=== PATIENT | male | born 1960 | race Caucasian/White ===

== ENCOUNTER 2021-03-10 16:00 | Inpatient (IN) ==
[2021-03-10] MEDS ORDERED: Morphine Sulfate 2 MG/ML SYRINGE IVP ONE (16:20)
[2021-03-10 16:38] LABS: Basophils # 0.1 K/mcL (0.0-0.2); Basophils % 0.6 %; Eosinophils # 0.3 K/mcL (0.0-0.6); Eosinophils % 3.6 %; Hematocrit 45.6 % (37.5-50.1); Hemoglobin 15.7 g/dL (12.9-16.9); Immature Granulocytes % 0.5 % (0-4); Lymphocytes # 3.1 K/mcL (0.6-4.6); Lymphocytes % 33.3 %; Mean Corpuscular HGB Conc 34.4 g/dL (31.6-35.5); Mean Corpuscular Hemoglobin 30.8 pg (28.0-33.3); Mean Corpuscular Volume 89.4 fL (83.0-100.0); Mean Platelet Volume 11.3 fL (9.4-12.4); Monocytes # 0.6 K/mcL (0.0-1.3); Monocytes % 6.1 %; Neutrophils # 5.2 K/mcL (1.6-8.9); Platelet Count 218 K/mcL (140-400); Red Cell Distribution Width 12.9 % (11.5-14.5); Segmented Neutrophils % 55.9 %; White Blood Count 9.3 K/mcL (4.3-11.1)
[2021-03-10 16:46] LABS: INR 1.2
[2021-03-10 16:49] LABS: Activated Partial Thrombo Time 31.6 Seconds (26.0-36.0)
[2021-03-10] MEDS ORDERED: Pantoprazole 40 MG VIAL IVP ONE (16:57)
[2021-03-10] MEDS ORDERED: Ondansetron 4 MG/2 ML VIAL IVP ONE (16:57)
[2021-03-10] MEDS ORDERED: GI Cocktail 40 ML EACH PO ONE (16:57)
[2021-03-10 17:08] LABS: BUN/Creatinine Ratio 13 (6-26); Blood Urea Nitrogen 14 mg/dL (8-23); Calcium 9.5 mg/dL (8.6-10.3); Carbon Dioxide 26 mEq/L (23-29); Chloride 104 mEq/L (98-107); Glucose 123 mg/dL (70-105); Lipase 23 Units/L (11-82); Osmolality,Calculated 294 (280-300); Potassium 3.7 mEq/L (3.5-5.1); Sodium 141 mEq/L (136-145); Troponin I 0.52 ng/mL (< 0.04); eGFR For African Americans > 60 (> 60); eGFR For Non-African Americans > 60 (> 60)
[2021-03-10] MEDS ORDERED: *HR* Heparin 5,000 UNIT/ML VIAL IVP PRN ×2 (17:08)
[2021-03-10] MEDS ORDERED: Aspirin 81 MG TAB.CHEW PO ONE (17:08)
[2021-03-10] MEDS ORDERED: Heparin 25,000UNIT/250ML 1/2NS 25,000 UNIT/250 ML IV.SOLN IVC SCH (17:15)
[2021-03-10 17:32] LABS: Heparin anti-factor XA UFH < 0.04 IU/mL (0.30-0.70)
[2021-03-10] MEDS: *HR* Heparin 5,000 UNIT/ML VIAL IVP ONE ×2 (17:36→18:11)
[2021-03-10] MEDS ORDERED: Ondansetron 4 MG/2 ML VIAL IVP PRN (18:21)
[2021-03-10] MEDS ORDERED: Naloxone 0.4 MG/ML INJ IVP PRN (18:21)
[2021-03-10] MEDS ORDERED: Perflutren Lipid Microsphere 1.3 ML in 0.9 % Sodium Chloride 8.7 ML IVP PRN (18:33)
[2021-03-10] MEDS ORDERED: Nitroglycerin 0.4 MG TAB.SUBL SL ONE (19:05)
[2021-03-10] MEDS: Nitroglycerin 0.4 MG TAB.SUBL SL PRN ×3 (19:08→21:23)
[2021-03-10] MEDS ORDERED: Nitroglycerin 1 INCH/GM PACKET TP ONE (21:26)
[2021-03-10] MEDS ORDERED: Morphine Sulfate 2 MG/ML SYRINGE IVP PRN (22:27)
[2021-03-11 03:39] LABS: Basophils % 0.3 %; Eosinophils % 0.3 %; Hematocrit 43.7 % (37.5-50.1); Hemoglobin 15.2 g/dL (12.9-16.9); Immature Granulocytes % 0.4 % (0-4); Lymphocytes # 1.8 K/mcL (0.6-4.6); Mean Corpuscular HGB Conc 34.8 g/dL (31.6-35.5); Mean Corpuscular Volume 89.2 fL (83.0-100.0); Mean Platelet Volume 12.1 fL (9.4-12.4); Monocytes # 0.6 K/mcL (0.0-1.3); Monocytes % 4.5 %; Neutrophils # 10.5 K/mcL (1.6-8.9); Platelet Count 207 K/mcL (140-400); Red Cell Distribution Width 12.8 % (11.5-14.5); Segmented Neutrophils % 80.5 %
[2021-03-11 04:01] LABS: BUN/Creatinine Ratio 18 (6-26); Blood Urea Nitrogen 16 mg/dL (8-23); Carbon Dioxide 21 mEq/L (23-29); Chloride 103 mEq/L (98-107); Glucose 135 mg/dL (70-105); Osmolality,Calculated 283 (280-300); Potassium 4.5 mEq/L (3.5-5.1); Sodium 135 mEq/L (136-145); eGFR For African Americans > 60 (> 60); eGFR For Non-African Americans > 60 (> 60)
[2021-03-11 04:34] LABS: Cholesterol 189 mg/dL (< 200); HDL Cholesterol 38 mg/dL (40-59); LDL Cholesterol,Calculated 122 mg/dL (< 100); Magnesium 1.9 mg/dL (1.6-2.6); Triglycerides 147 mg/dL (< 150)
[2021-03-11] MEDS: Aspirin 81 MG TAB.CHEW PO SCH ×2 (07:51→09:21)
[2021-03-11] MEDS ORDERED: 0.9 % Sodium Chloride 1,000 ML ONE ×2 (10:39→12:38)
[2021-03-11] MEDS ORDERED: ISOVUE-370 200 ML INFUS..BTL ONE ×2 (10:40→12:59)
[2021-03-11] MEDS ORDERED: *HR* Heparin 10,000 UNIT/10 ML VIAL ONE ×2 (10:40→12:58)
[2021-03-11] MEDS ORDERED: Heparin 1,000 UNITS/500 mL 500 ML ONE (10:40)
[2021-03-11] MEDS ORDERED: Nitroglycerin 1,000 MCG/5 ML VIAL IV ONE (10:40)
[2021-03-11] MEDS ORDERED: *HR* FentaNYL (PF) 100 MCG/2 ML VIAL ONE (12:29)
[2021-03-11] MEDS ORDERED: *HR* Midazolam HCl 2 MG/2 ML VIAL ONE (12:29)
[2021-03-11] MEDS ORDERED: Tirofiban 12.5 MG/250ML 12.5 MG/250 ML BAG ONE (12:54)
[2021-03-11] MEDS ORDERED: Acetaminophen 325 MG TABLET PO PRN (13:11)
[2021-03-11] MEDS ORDERED: *HR* Ticagrelor 90 MG TABLET ONE (13:14)
[2021-03-11] MEDS ORDERED: Tirofiban 12.5 MG/250ML 12.5 MG/250 ML BAG IVC SCH (13:15)
[2021-03-11] MEDS: *HR* Ticagrelor 90 MG TABLET PO SCH (19:54)
[2021-03-12] MEDS ORDERED: *HR* Heparin 5,000 UNIT/ML VIAL SQ SCH (06:00)
[2021-03-12 06:31] VITALS: BP 104/81; PULSE 69; TEMP 98.7; O2SAT 97
[2021-03-12 07:21] LABS: Hematocrit 45.1 % (37.5-50.1); Hemoglobin 15.8 g/dL (12.9-16.9); Mean Corpuscular Volume 88.4 fL (83.0-100.0); Mean Platelet Volume 11.2 fL (9.4-12.4); Platelet Count 188 K/mcL (140-400); Red Cell Distribution Width 12.9 % (11.5-14.5); White Blood Count 10.7 K/mcL (4.3-11.1)
[2021-03-12] MEDS: Aspirin 81 MG TAB.CHEW PO SCH (07:36)
[2021-03-12] MEDS: *HR* Ticagrelor 90 MG TABLET PO SCH (07:36)
[2021-03-12 07:41] LABS: BUN/Creatinine Ratio 17 (6-26); Blood Urea Nitrogen 17 mg/dL (8-23); Carbon Dioxide 21 mEq/L (23-29); Chloride 104 mEq/L (98-107); Glucose 131 mg/dL (70-105); Osmolality,Calculated 281 (280-300); Potassium 4.4 mEq/L (3.5-5.1); Sodium 134 mEq/L (136-145); eGFR For African Americans > 60 (> 60); eGFR For Non-African Americans > 60 (> 60)
[2021-03-12 09:01] LABS: Calcium 9.4 mg/dL (8.6-10.3)
== END 2021-03-12 09:11 | disposition home or self-care (01) | DRG 247 ==
LOC: EMEROOARM 16:00 → 3BNU 16:00 → SUATTDRO 03-11 10:32 → 2NNU 03-11 13:25
PROVIDERS: ADMIT Family Medicine; ATTEND Internal Medicine